=== PATIENT | female | born 1975 ===

== ENCOUNTER 2024-08-23 07:21 | Day surgery (SDC) | payer OTHER ==
[2024-08-22 11:03] VITALS: BP 119/85
[2024-08-22 11:04] LABS: URINE APPEARANCE Clear; URINE BILIRRUBIN Negative (NEGATIVE); URINE BLOOD Negative; URINE COLOR Yellow; URINE GLUCOSE Negative (NEGATIVE); URINE KETONE Negative (NEGATIVE); URINE LEUKOCYTE Negative; URINE NITRATE Negative; URINE PROTEIN Negative (NEGATIVE); URINE UROBILINOGEN 0.2 E.U./dl
[2024-08-22 11:08] LABS: URINE BACTERIA 487.1 uL (0.0-1933); URINE EPITHELIAL CELLS 65.3 uL (0.0-38.8); URINE RBC 32.1 uL (0.0-20.8); URINE WBC 15.6 uL (0.0-23.2)
[2024-08-22 11:14] LABS: HEMATOCRIT 40.5 % (36.0-45.00); HEMOGLOBIN 14.1 g/dL (12.0-15.00); MEAN CELL VOLUME 87.7 fL (80.00-100.00); MEAN CORPUSCULAR HEMOGLOBIN 30.4 pg (27.00-32.0); MEAN CORPUSCULAR HGB CONC 34.7 g/dl (32.0-36.0); PLATELET COUNT 288 K/uL (150-450); RED BLOOD COUNT 4.62 M/uL (4.00-6.00)
[2024-08-22 11:28] LABS: URINE CAST 0.88 uL (0.0-1.40); URINE CRYSTALS FEW /HPF
[2024-08-22 11:29] LABS: URINE MUCUS MODERATE
[2024-08-22 11:54] LABS: INR 0.94; PARTIAL THROMBOPLASTIN TIME 29.9 SECONDS (22.0-34.0); PROTHROMBIN TIME 10.3 SECONDS (9.0-11.5)
[2024-08-22 12:29] LABS: ALBUMIN 4.1 gm/dL (3.4-5.0); BILIRUBIN TOTAL 0.58 mg/dL (0.3-1.2); CALCIUM 9.1 mg/dL (8.5-10.1); CREATININE SERUM 0.68 mg/dL (0.55-1.02); GFR 91.96; GLOBULINA 3.1 G/DL (2.4-3.5); POTASSIUM 3.17 mEq/L (3.5-5.1); TOTAL PROTEIN 7.2 gm/dL (6.4-8.2)
[~2024-08-23] VITALS: Ht 160 cm; Wt 79.4 kg
[~2024-08-23 07:21] MED LIST: AMLODIPINE-OLM1 EAC2; ATOMOXETINE; CHLORTHALIDONE25 MG PO; COZAAR50 MG PO; DESVENLAFAXINE100 MG; EZALLOR SPRINKLE5 MG PO
[2024-08-23] MEDS ORDERED: BUPIVACAINE HCL/Mpf 0.5% 10ML VIAL ONE (13:49)
[2024-08-23] MEDS ORDERED: CLINDAMYCIN PHOSPHATE 150 MG/ML (900mg) IV SCH (15:45)
[2024-08-23] MEDS ORDERED: MORPHINE SULFATE 4 MG/ML VIAL IV ONE ×2 (17:50→19:20)
== END 2024-08-23 21:00 | disposition home or self-care (01) ==
LOC: CIR.AMB 07:21
PROVIDERS: ATTEND Orthopaedic Surgery Hand Surgery
DX: S62.313A Displaced fracture of base of third metacarpal bone, left hand, initial encounter for closed fracture (principal); S62.315A Displaced fracture of base of fourth metacarpal bone, left hand, initial encounter for closed fracture; I10 Essential (primary) hypertension; E78.5 Hyperlipidemia, unspecified; J44.9 Chronic obstructive pulmonary disease, unspecified; J45.909 Unspecified asthma, uncomplicated; F41.0 Panic disorder [episodic paroxysmal anxiety]; Z88.6 Allergy status to analgesic agent; Z88.0 Allergy status to penicillin